=== PATIENT | male | born 1975 | race American Indian/Alaskan Native ===

== ENCOUNTER 2016-08-30 02:35 | Emergency (ER) | payer BC ==
--- NOTE | 2016-08-30 07:38 | Emergency Department Report ---
ED Abdominal Pain HPI - General Chief Complaint: Rectal Pain Stated Complaint: HEMORRHOIDS Time Seen by Provider: 08/30/16 07:18 Source: patient Mode of arrival: Ambulatory Limitations: No Limitations - History of Present Illness Initial Comments: Patient complaining of several days of rectal pain while moving bowels. Patient denies nausea vomiting diarrhea fever, also denies anorexia or abdominal pain MD Complaint: other -: Gradual, days(s) Radiation: none Migration to: no migration Severity scale (0 -10): 7 Quality: aching, sharp, burning Improves With: nothing Worsens With: bowel movement Associated Symptoms: denies: nausea, vomiting, diarrhea, fever, chills, constipation, dysuria, hematemesis, hematochezia, melena, hematuria, anorexia, syncope - Related Data Previous Rx's Medication Instructions Recorded Last Taken Type Cyclobenzaprine [Flexeril] 10 mg PO TID PRN #14 tablet 05/30/13 Unknown Rx Ibuprofen [Motrin] 800 mg PO TID PRN #20 tablet 05/30/13 Unknown Rx Gentamicin 0.3% Ophth Soln 2 drops OP Q4H #1 bottle 09/25/13 Unknown Rx HYDROcodone/APAP 5-325 [Brick 1 each PO Q6HR PRN #20 tablet 09/25/13 Unknown Rx 5/325] Ibuprofen [Motrin] 600 mg PO Q8H PRN #60 tablet 09/25/13 Unknown Rx Acetaminophen/Codeine [Tylenol #3] 1 tab PO Q6H PRN #10 tab 11/08/14 Unknown Rx Fluticasone [Flonase] 1 spray NS QDAY #1 bottle 11/08/14 Unknown Rx Pseudoephedrine [Sudafed] 60 mg PO Q6HR #20 tablet 11/08/14 Unknown Rx Tobramycin 0.3% [Tobrex] 2 drop OP Q4HR #1 bottle 11/08/14 Unknown Rx Docusate Sodium [Colace Clear CAP] 50 mg PO BID #20 capsule 08/30/16 Unknown Rx Hydrocortisone [Anucort-HC SUPPOS] 25 mg RC BID #20 supp.rect 08/30/16 Unknown Rx Allergies Allergy/AdvReac Type Severity Reaction Status Date / Time No Known Allergies Allergy Verified 03/01/13 07:11 ED Review of Systems ROS: Stated complaint: HEMORRHOIDS Other details as noted in HPI Constitutional: denies: chills, fever Eyes: denies: eye pain, eye discharge, vision change ENT: denies: ear pain, throat pain Respiratory: denies: cough, shortness of breath, wheezing Cardiovascular: denies: chest pain, palpitations Endocrine: no symptoms reported Gastrointestinal: denies: abdominal pain, nausea, vomiting, diarrhea, constipation, hematemesis, melena Genitourinary: denies: urgency, dysuria Musculoskeletal: denies: back pain, joint swelling, arthralgia Skin: denies: rash, lesions Neurological: denies: headache, weakness, paresthesias Psychiatric: denies: anxiety, depression Hematological/Lymphatic: denies: easy bleeding, easy bruising ED Past Medical Hx - Past Medical History Previous Medical History?: No - Surgical History Past Surgical History?: No - Social History Smoking Status: Never Smoker Substance Use Type: None - Medications Home Medications: Home Medications Medication Instructions Recorded Confirmed Last Taken Type Cyclobenzaprine [Flexeril] 10 mg PO TID PRN #14 tablet 05/30/13 Unknown Rx Ibuprofen [Motrin] 800 mg PO TID PRN #20 tablet 05/30/13 Unknown Rx Gentamicin 0.3% Ophth Soln 2 drops OP Q4H #1 bottle 09/25/13 Unknown Rx HYDROcodone/APAP 5-325 [Brick 1 each PO Q6HR PRN #20 tablet 09/25/13 Unknown Rx 5/325] Ibuprofen [Motrin] 600 mg PO Q8H PRN #60 tablet 09/25/13 Unknown Rx Acetaminophen/Codeine [Tylenol #3] 1 tab PO Q6H PRN #10 tab 11/08/14 Unknown Rx Fluticasone [Flonase] 1 spray NS QDAY #1 bottle 11/08/14 Unknown Rx Pseudoephedrine [Sudafed] 60 mg PO Q6HR #20 tablet 11/08/14 Unknown Rx Tobramycin 0.3% [Tobrex] 2 drop OP Q4HR #1 bottle 11/08/14 Unknown Rx Docusate Sodium [Colace Clear CAP] 50 mg PO BID #20 capsule 08/30/16 Unknown Rx Hydrocortisone [Anucort-HC SUPPOS] 25 mg RC BID #20 supp.rect 08/30/16 Unknown Rx ED Physical Exam - General Limitations: No Limitations General appearance: alert, in no apparent distress - Head Head exam: Present: atraumatic, normocephalic - Eye Eye exam: Present: normal appearance - ENT ENT exam: Present: normal exam, mucous membranes moist - Neck Neck exam: Present: normal inspection - Respiratory Respiratory exam: Present: normal lung sounds bilaterally. Absent: respiratory distress - Cardiovascular Cardiovascular Exam: Present: regular rate, normal rhythm. Absent: systolic murmur, diastolic murmur, rubs, gallop - GI/Abdominal GI/Abdominal exam: Present: soft. Absent: distended, tenderness, guarding, rebound, rigid, mass, bruit, pulsatile mass - Rectal Rectal exam: Present: normal rectal tone, hemorrhoids (15 mm thrombosed hemorrhoid external.) - Extremities Exam Extremities exam: Present: normal inspection. Absent: pedal edema - Back Exam Back exam: Present: normal inspection - Neurological Exam Neurological exam: Present: alert, oriented X3, normal gait - Psychiatric Psychiatric exam: Present: normal affect, normal mood - Skin Skin exam: Present: warm, dry, intact, normal color. Absent: rash ED Course Vital Signs 08/30/16 08/30/16 03:16 07:48 Temperature 97.8 F Pulse Rate 106 H 88 Respiratory 20 18 Rate Blood Pressure 122/77 Blood Pressure 124/81 [Left] O2 Sat by Pulse 99 100 Oximetry Critical care attestation.: If time is entered above; I have spent that time in minutes in the direct care of this critically ill patient, excluding procedure time. ED Disposition Clinical Impression: Hemorrhoids, external without complications Disposition: DISCHARGED TO HOME OR SELFCARE Is pt being admited?: No Condition: Stable Instructions: Hemorrhoids (ED) Prescriptions: Docusate Sodium [Colace Clear CAP] 50 mg PO BID #20 capsule Hydrocortisone [Anucort-HC SUPPOS] 25 mg RC BID #20 supp.rect Referrals: PRIMARY CARE, [Primary Care Provider] - 3-5 Days TERESO CALHOUN MD [Staff Physician] - 3-5 Days DEREJE GARZA MD [Staff Physician] - 3-5 Days Forms: Work/School Release Form(ED)
[2016-08-30 07:49] VITALS: BP 124/81
== END 2016-08-30 07:48 | disposition home or self-care (01) ==
LOC: ED 02:35
DX: K64.4 Residual hemorrhoidal skin tags (principal)
CPT/HCPCS: 99282

== ENCOUNTER 2017-05-14 19:49 | Emergency (ER) | payer BC ==
[2017-05-14 22:46] VITALS: BP 128/76
[2017-05-14 23:03] LABS: Hematocrit 43.4 % (35.5-45.6); Hemoglobin 14.8 gm/dl (11.8-15.2); Mean Corpuscular HGB Conc 34 % (32-34); Mean Corpuscular Hemoglobin 32 pg (28-32); Mean Corpuscular Volume 93 fl (84-94); Platelet Count 210 K/mm3 (140-440); Red Blood Count 4.68 M/mm3 (3.65-5.03); Red Cell Distribution Width 13.4 % (13.2-15.2)
--- NOTE | 2017-05-14 23:21 | XRay Report ---
FINAL REPORT PROCEDURE: XR CHEST ROUTINE 2V TECHNIQUE: PA and lateral chest radiographs were obtained. CPT 75631 HISTORY: chest pain COMPARISON: No prior studies are available for comparison. FINDINGS: Heart: Normal. Mediastinum/Vessels: Normal. Lungs/Pleural space: Normal. Bony thorax: No acute osseous abnormality. Other: IMPRESSION: Normal examination.
[2017-05-14 23:23] LABS: BUN/Creatinine Ratio 13; Blood Urea Nitrogen 13 mg/dL (9-20); Calcium 8.8 mg/dL (8.4-10.2); Hemolysis Index 7
[2017-05-15 01:02] LABS: Basophils % (Manual) 0 % (0.0-1.8); Platelet Estimate Consistent w Auto; Total Cells Counted 100
== END 2017-05-15 00:18 | disposition left against medical advice (07) ==
LOC: ED 19:49
DX: R07.9 Chest pain, unspecified (principal); Z53.21 Procedure and treatment not carried out due to patient leaving prior to being seen by health care provider
CPT/HCPCS: 36415; 71046; 80048; 84484; 85007; 85025; 93005; 93010

== ENCOUNTER 2018-01-07 06:59 | Emergency (ER) | payer BC ==
[2018-01-07 07:12] VITALS: BP 107/65
--- NOTE | 2018-01-07 09:04 | Emergency Department Report ---
ED Rash HPI - HPI Chief Complaint: Skin Rash Stated Complaint: RASH ON GROIN Time Seen by Provider: 01/07/18 08:07 Duration: 5 Days Location: Other (GROIN ) Rash Symptoms: Yes Itching, No Facial Swelling, No Tongue/Oral Swelling, No Breathing Difficulties, No Choking Sensation, No Wheezing/Dyspnea, No Peeling, No Blistering, No Fever, No Lightheaded, No Malaise, No Myalgias Severity: mild ED Review of Systems ROS: Stated complaint: RASH ON GROIN Other details as noted in HPI Constitutional: no symptoms reported Eyes: denies: eye pain ENT: denies: throat pain Respiratory: denies: cough Cardiovascular: denies: palpitations Endocrine: denies: see HPI Gastrointestinal: denies: abdominal pain, nausea Genitourinary: denies: urgency, dysuria, frequency, hematuria, discharge, testicular pain, testicular mass Musculoskeletal: denies: back pain Skin: rash Neurological: denies: headache, weakness Psychiatric: denies: depression Hematological/Lymphatic: denies: easy bleeding ED Past Medical Hx - Past Medical History Previous Medical History?: No - Surgical History Past Surgical History?: No - Family History Family history: no significant - Social History Smoking Status: Never Smoker Substance Use Type: None - Medications Home Medications: Home Medications Medication Instructions Recorded Confirmed Last Taken Type Clotrimazole/Betamethasone Dip 1 applicatio TP BID #1 cream..g. 01/07/18 Unknown Rx [Lotrisone Cream] Fluconazole [Diflucan] 150 mg PO ONCE #1 tablet 01/07/18 Unknown Rx Rash Exam - Exam General: Vital signs noted. No distress. Alert and acting appropriately. HEENT: No Periorbital Edema, No Conjuctival Injection, No Chemosis, No Perioral Edema, No Tongue Edema, No Uvular Edema, No Compromised Airway, No Drooling Lungs: Yes Good Air Exchange, No Wheezes, No Ronchi, No Stridor, No Cough, No Labored Respirations, No Retractions, No Use of Accessory Muscles, No Other Abnormal Lung Sounds Heart: Yes Regular, No Murmur Skin: Yes Other (DRY EXCORIATED RASH OF TINEA ON B FOLD OF LEGS AND UNDER SCROTUM), No Urticarial Rash, No Maculopapular Rash, No Morbilliform rash, No Bulla(e), No Excoriations, No Weeping, No Tenderness, No Erythema, No Edema, No Encrustations Other: Positive: Abdomen Normal (NO RASH ON PENIS; NO PENILE DISCHARGE), Neurologic Normal, Musculoskeletal Normal ED Course Vital Signs 01/07/18 07:08 Temperature 97.8 F Pulse Rate 67 Respiratory 18 Rate Blood Pressure 107/65 O2 Sat by Pulse 99 Oximetry ED Medical Decision Making - Medical Decision Making JOCK ITCH ON EXAM - Differential Diagnosis JOCK ITCH VS STI LESION Critical care attestation.: If time is entered above; I have spent that time in minutes in the direct care of this critically ill patient, excluding procedure time. ED Disposition Clinical Impression: Jock itch Disposition: - TO HOME OR SELFCARE Is pt being admited?: No Does the pt Need Aspirin: No Condition: Stable Instructions: Golden Itch (ED) Prescriptions: Clotrimazole/Betamethasone Dip [Lotrisone Cream] 1 applicatio TP BID #1 cream..g. Fluconazole [Diflucan] 150 mg PO ONCE #1 tablet Referrals: PRIMARY MD NOEMI [Primary Care Provider] - 3-5 Days DEBRA YOUNGBLOOD MD [Staff Physician] - 3-5 Days CHRISTINE GIBSON MD [Referring] - 3-5 Days Time of Disposition: 08:58
== END 2018-01-07 09:11 | disposition home or self-care (01) ==
LOC: ED 06:59
DX: B35.6 Tinea cruris (principal)
CPT/HCPCS: 99282